=== PATIENT | female | born 1965 | race Caucasian/White ===

== ENCOUNTER 2017-06-13 15:12 | Day surgery (SDC) | payer BC, OTHER ==
[~2017-06-13] VITALS: Ht 160 cm; Wt 72.4 kg
[~2017-06-13 15:12] MED LIST: CEFAZOLIN 1,000 MG ONE; DEXAMETHASONE 4 MG/ML, 1ML ONE; FENTANYL PF 100 MCG/2ML ONE; GLYCOPYRROLATE 0.2MG/1ML, 5ML ONE; MIDAZOLAM 1 MG/ML, 2ML ONE; NEOSTIGMINE 1 MG/ML, 10ML ONE; ONDANSETRON 2MG/ML, 2ML ONE; PROPOFOL 10 MG/ML, 20ML ONE; ROCURONIUM 10 MG/ML,10ML ONE; SODIUM CHLORIDE 0.9% PF 10ML ONE
[2017-06-13 15:42] VITALS: BP 144/94
[2017-06-13] MEDS ORDERED: BUPIVACAINE/PF 0.5% ONE (16:00)
[2017-06-13] MEDS ORDERED: HEPARIN 1,000 UNITS/ML, 10ML ONE (16:00)
[2017-06-13] MEDS ORDERED: EPINEPHRINE 1 MG/ML, 1ML ONE (16:01)
[2017-06-13] MEDS ORDERED: LACTATED RINGERS 1,000 ML IV SCH (16:03)
[2017-06-13] MEDS ORDERED: CETI10CA PO (16:03)
[2017-06-13] MEDS ORDERED: LIDOCAINE-MPF 1%, 2ML ONE (16:04)
[2017-06-13] MEDS ORDERED: LIDOCAINE 1%, 2ML SQ PRN (16:30)
[2017-06-13] MEDS ORDERED: LABETALOL 5MG/ML, 20ML IV PRN (16:30)
[2017-06-13] MEDS ORDERED: ONDANSETRON 2MG/ML, 2ML IVPush PRN ×2 (16:30→19:30)
[2017-06-13] MEDS ORDERED: ACETAMINOPHEN 325 MG TABLET PO PRN (16:30)
[2017-06-13] MEDS ORDERED: HYDROmorphone 1 MG/ML, 1ML IV PRN (16:30)
[2017-06-13] MEDS ORDERED: hydrALAzine 20 MG/ML, 1ML IV PRN (16:30)
[2017-06-13] MEDS ORDERED: OXYcodone 5 MG/5 ML ORAL.SOL UDC PO PRN (16:30)
[2017-06-13] MEDS ORDERED: MEPERIDINE/PF 25MG/0.5ML IVPush PRN (16:30)
[2017-06-13] MEDS ORDERED: PROMETHAZINE 25 MG/ML, 1ML IV PRN (16:30)
[2017-06-13] MEDS ORDERED: OXYcodone 5 MG/5 ML ORAL.SOL UDC ONE (17:22)
[2017-06-13] MEDS ORDERED: ACETAMINOPHEN 650 MG/20.3 ML UDC ONE (17:22)
[2017-06-13] MEDS ORDERED: FENTANYL PF 100 MCG/2ML ONE (17:26)
[2017-06-13] MEDS: FENTANYL PF 100 MCG/2ML IV PRN ×2 (17:30→17:42)
[2017-06-13] MEDS ORDERED: MORPHINE SULFATE 4 MG/ML, 1ML IVPush PRN (19:30)
== END 2017-06-13 20:10 | disposition home or self-care (01) ==
LOC: OR 15:12 → 4NOR 18:42 → OR 20:10
PROVIDERS: ATTEND Surgery
DX: Z45.2 Encounter for adjustment and management of vascular access device (principal); C50.911 Malignant neoplasm of unspecified site of right female breast
CPT/HCPCS: 36561; 71045; 77001; C1788; J0171; J0690; J1100; J1644; J2250; J2405; J2704; J2710; J3010; J3490; 76000